=== PATIENT | female | born 1960 | race Caucasian/White ===

== ENCOUNTER 2021-06-22 20:56 | Emergency (ER) | payer OTHER, SELFPAY | END 2021-06-22 23:37 | disposition home or self-care (01) | LOC: ERS 20:56 | DX: S00.83XA Contusion of other part of head, initial encounter (principal); F10.129 Alcohol abuse with intoxication, unspecified; E78.5 Hyperlipidemia, unspecified; E78.00 Pure hypercholesterolemia, unspecified; V19.9XXA Pedal cyclist (driver) (passenger) injured in unspecified traffic accident, initial encounter | CPT/HCPCS: 70450; 70486; 72125 ==

== ENCOUNTER 2021-08-28 19:01 | Emergency (ER) | payer OTHER, SELFPAY ==
[2021-08-28] MEDS ORDERED: Ketorolac Tromethamine 30 MG/ML VIAL ONE (22:12)
== END 2021-08-28 22:16 | disposition home or self-care (01) ==
LOC: ERS 19:01
DX: S20.214A Contusion of middle front wall of thorax, initial encounter (principal); E78.00 Pure hypercholesterolemia, unspecified; E78.5 Hyperlipidemia, unspecified; V43.62XA Car passenger injured in collision with other type car in traffic accident, initial encounter; W22.12XA Striking against or struck by front passenger side automobile airbag, initial encounter; Z79.84 Long term (current) use of oral hypoglycemic drugs; Z79.899 Other long term (current) drug therapy
CPT/HCPCS: 71045; 96372; J1885